=== PATIENT | male | born 1955 | race Caucasian/White ===

== ENCOUNTER → 2016-10-22 | Outpatient (CLI) | payer OTHER ==
[~2016-10-22] MED LIST: ATOR10TA9 PO; BIMA2.5D EACHEYE; CHOL20002 PO; ENOX120S5 SQ; ENOX80SY4 SQ; ENOX80SY5 SQ; FENTANYL PF 100 MCG/2ML ONE; HYDR-3138 PO; LACT1CAP33 PO; LACT1CAP35 PO; MAGN400T26 PO; MELA1TAB7 PO; METO25TA35 PO; METR500T4 PO; MIDAZOLAM 1 MG/ML, 5ML ONE; OMEG1CAP34 PO; OXYC-302 PO; TRAM50TA2 PO; VITA1TAB3 PO; WARF10TA6 PO-COUM; WARF5TAB7 PO; ZOLP10TA PO
== END | disposition home or self-care (01) ==
LOC: RAD 08:36
PROVIDERS: ATTEND Orthopaedic Surgery
DX: M75.122 Complete rotator cuff tear or rupture of left shoulder, not specified as traumatic (principal); M13.812 Other specified arthritis, left shoulder; M25.812 Other specified joint disorders, left shoulder
CPT/HCPCS: 73221; J2250; J3010; 99156; 99157

== ENCOUNTER → 2017-05-21 | Outpatient (CLI) | payer OTHER ==
[~2017-05-21] MED LIST changes: +ACIDOPHILUS PROB1 MG PO; -FENTANYL PF 100 MCG/2ML ONE; -HYDR-3138 PO; +HYDR-3237 PO; -LACT1CAP33 PO; -METR500T4 PO; +METR500T8 PO; -MIDAZOLAM 1 MG/ML, 5ML ONE
== END ==
LOC: CFH 14:56
PROVIDERS: ATTEND Nurse Practitioner Family
DX: Z02.9 Encounter for administrative examinations, unspecified (principal)

== ENCOUNTER 2017-12-22 10:16 | Day surgery (SDC) | payer OTHER ==
[~2017-12-22] VITALS: Ht 167.6 cm; Wt 78.9 kg
[~2017-12-22 10:16] MED LIST changes: +WARF-36 PO; +WARF10TA43 PO-COUM; -WARF10TA6 PO-COUM; -WARF5TAB7 PO
[2017-12-22] MEDS ORDERED: LACTATED RINGERS 1,000 ML IV SCH (10:40)
[2017-12-22] MEDS ORDERED: GABA300C10 PO (11:07)
[2017-12-22] MEDS ORDERED: ENOX150S5 SQ (11:07)
[2017-12-22] MEDS ORDERED: WARF-36 PO (11:07)
[2017-12-22] MEDS ORDERED: METO25TA35 PO (11:07)
[2017-12-22 11:24] VITALS: BP 108/80
[2017-12-22] MEDS ORDERED: PROPOFOL 50 ML ONE (11:41)
[2017-12-22] MEDS ORDERED: MIDAZOLAM 1 MG/ML, 2ML ONE (11:41)
[2017-12-22 12:15] LABS: INTERNATIONAL NORMALIZED RATIO 1.14 (0.93-1.1); PROTHROMBIN TIME 11.7 Seconds (9.6-11.5)
[2017-12-22] MEDS ORDERED: PROMETHAZINE 25 MG/ML, 1ML IV PRN (12:30)
[2017-12-22] MEDS ORDERED: HYDROcodone/APAP 7.5-325MG/15ML UDC PO PRN (12:30)
[2017-12-22] MEDS ORDERED: hydrALAzine 20 MG/ML, 1ML IV PRN (12:30)
[2017-12-22] MEDS ORDERED: ONDANSETRON ODT 8 MG PO PRN (12:30)
[2017-12-22] MEDS ORDERED: ACETAMINOPHEN 325 MG TABLET PO PRN (12:30)
[2017-12-22] MEDS ORDERED: ALBUTEROL SULFATE 2.5 MG/3 ML NPPB PRN (12:30)
[2017-12-22] MEDS ORDERED: MIDAZOLAM 1 MG/ML, 2ML IV PRN (12:30)
[2017-12-22] MEDS ORDERED: LABETALOL 5MG/ML, 20ML IV PRN (12:30)
[2017-12-22] MEDS ORDERED: EPHEDRINE 50 MG/ML, 1ML IVPush PRN (12:30)
[2017-12-22] MEDS ORDERED: FENTANYL PF 100 MCG/2ML IV PRN (12:30)
[2017-12-22] MEDS ORDERED: ONDANSETRON ODT 8 MG ONE (12:43)
== END 2017-12-22 14:50 ==
LOC: OUT 10:16
PROVIDERS: ATTEND Internal Medicine Geriatric Medicine
DX: K31.89 Other diseases of stomach and duodenum (principal); R79.89 Other specified abnormal findings of blood chemistry
CPT/HCPCS: 36415; 43239; 43242; 85610; 88305; 88307; 88313; 93005; J2250; J2704; J7120; Q0162

== ENCOUNTER 2018-02-21 11:04 | Emergency (ER) | payer OTHER ==
[~2018-02-21] VITALS: Ht 167.6 cm; Wt 80.0 kg
[~2018-02-21 11:04] MED LIST changes: +ENOX150S5 SQ; +GABA300C10 PO
[2018-02-21] MEDS ORDERED: HYDROcodone/APAP 5/325 TABLET PO ONE (12:00)
[2018-02-21 12:18] LABS: BASOPHILS # (AUTO) 0.05 x10^3/uL (0-0.1); BASOPHILS % (AUTO) 1 % (0-1); EOSINOPHILS # (AUTO) 0.16 x10^3/uL (0-0.4); EOSINOPHILS % (AUTO) 2 % (1-7); LYMPHOCYTES # (AUTO) 0.81 x10^3/uL (1-3.4); LYMPHOCYTES % (AUTO) 11 % (22-44); MD NO; MEAN CORPUSCULAR HEMOGLOBIN 32.3 pg (27.5-34.5); MEAN CORPUSCULAR HGB CONC 33.7 g/dL (33.2-36.2); MEAN CORPUSCULAR VOLUME 95.8 fL (81-97); MEAN PLATELET VOLUME 10.7 fL (7.4-10.4); MONOCYTES # (AUTO) 0.87 x10^3/uL (0.2-0.8); MONOCYTES % (AUTO) 12 % (2-9); NEUTROPHILS # (AUTO) 5.42 x10^3/uL (1.8-6.8); NEUTROPHILS % (AUTO) 74 % (42-75); PLATELET COUNT 180 x10^3/uL (130-400); RED BLOOD COUNT 3.49 x10^6/uL (4.38-5.82); RED CELL DISTRIBUTION WIDTH 15.7 % (9.4-14.8)
[2018-02-21 12:33] LABS: INTERNATIONAL NORMALIZED RATIO 5.69 (0.93-1.1); PROTHROMBIN TIME 56.6 Seconds (9.6-11.5)
[2018-02-21 12:38] VITALS: BP 108/63
[2018-02-21] MEDS ORDERED: HYDROcodone/APAP 5/325 TABLET ONE (12:40)
== END 2018-02-21 14:07 | disposition home or self-care (01) ==
LOC: ED 13:02
DX: S70.02XA Contusion of left hip, initial encounter (principal); I48.91 Unspecified atrial fibrillation; W19.XXXA Unspecified fall, initial encounter; Y93.89 Activity, other specified; Y99.8 Other external cause status; Y92.009 Unspecified place in unspecified non-institutional (private) residence as the place of occurrence of the external cause
CPT/HCPCS: 36415; 72192; 85025; 85610; 99285

== ENCOUNTER → 2018-03-11 | Outpatient (CLI) | payer OTHER ==
[~2018-03-11] MED LIST changes: -CHOL20002 PO; +CHOL200052 PO
== END | disposition home or self-care (01) ==
LOC: RAD 16:32
PROVIDERS: ATTEND Nurse Practitioner Family
DX: L03.116 Cellulitis of left lower limb (principal); M79.89 Other specified soft tissue disorders; M79.605 Pain in left leg; R60.0 Localized edema

== ENCOUNTER 2018-08-02 06:45 | Outpatient (CLI) | payer MEDICARE ==
[~2018-08-02 06:45] MED LIST changes: +METR-90 PO; -METR500T8 PO
[2018-08-02] MEDS ORDERED: REGADENOSON 0.4 MG/5 ML SYRINGE ONE (07:36)
== END 2018-08-02 23:59 | disposition home or self-care (01) ==
LOC: CFH 06:45
PROVIDERS: ATTEND Internal Medicine Cardiovascular Disease
DX: I35.1 Nonrheumatic aortic (valve) insufficiency (principal); I35.8 Other nonrheumatic aortic valve disorders; I45.2 Bifascicular block; I48.2 Chronic atrial fibrillation; I21.9 Acute myocardial infarction, unspecified; Z95.4 Presence of other heart-valve replacement
CPT/HCPCS: 78452; 93017; 93306; A9502; J2785

== ENCOUNTER → 2018-10-20 | Outpatient (CLI) | payer MEDICARE, OTHER | END | disposition home or self-care (01) | LOC: RAD 12:02 | PROVIDERS: ATTEND Nurse Practitioner Family | DX: R05 Cough (principal); R91.8 Other nonspecific abnormal finding of lung field; R09.89 Other specified symptoms and signs involving the circulatory and respiratory systems | CPT/HCPCS: 71046 ==

== ENCOUNTER → 2018-12-08 | Outpatient (CLI) | payer MEDICARE, OTHER | END | disposition home or self-care (01) | LOC: CFH 13:58 | PROVIDERS: ATTEND Nurse Practitioner Family | DX: J44.9 Chronic obstructive pulmonary disease, unspecified (principal); Z87.01 Personal history of pneumonia (recurrent) | CPT/HCPCS: 71046 ==

== ENCOUNTER 2020-01-31 19:15 | Observation (INO) | payer BC, MEDICARE ==
[~2020-01-31] VITALS: Ht 167.6 cm; Wt 91.0 kg
--- NOTE | 2020-01-31 19:35 | NUR ---
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
[2020-01-31 19:52] LABS: BASOPHILS # (AUTO) 0.06 x10^3/uL (0-0.1); BASOPHILS % (AUTO) 1 % (0-1); EOSINOPHILS # (AUTO) 0.05 x10^3/uL (0-0.4); EOSINOPHILS % (AUTO) 1 % (1-7); LYMPHOCYTES # (AUTO) 1.04 x10^3/uL (1-3.4); LYMPHOCYTES % (AUTO) 13 % (22-44); MD NO; MEAN CORPUSCULAR HEMOGLOBIN 32.5 pg (27.5-34.5); MEAN CORPUSCULAR HGB CONC 33.4 g/dL (33.2-36.2); MEAN CORPUSCULAR VOLUME 97.3 fL (81-97); MEAN PLATELET VOLUME 10.6 fL (7.4-10.4); MONOCYTES # (AUTO) 0.97 x10^3/uL (0.2-0.8); MONOCYTES % (AUTO) 12 % (2-9); NEUTROPHILS # (AUTO) 6.19 x10^3/uL (1.8-6.8); NEUTROPHILS % (AUTO) 74 % (42-75); PLATELET COUNT 148 x10^3/uL (130-400); RED BLOOD COUNT 4.84 x10^6/uL (4.38-5.82); RED CELL DISTRIBUTION WIDTH 14.2 % (9.4-14.8)
--- NOTE | 2020-01-31 19:53 | NUR ---
PT. TO ED TONIGHT WITH C/O FEELINGS OF GENERALIZED WEAKNESS AND BLURRED VISION RESULTING IN A FALL TONIGHT AT 1700. PT. DENIES ANY INJURY WITH FALL, DENIES HITTING HEAD. PT. A&O X 4. ABLE TO STAND FROM W/C AND GET TO GURNEY WITH SHUFFLING GAIT. PT. MANN X 4 WITH GENERALIZD WEAKNESS NOTED. NO FACIAL DROOP NOTED. PT. DOES REPORT HX OF STROKE 4 YEARS AGO. PT. ON [place] PARISH. IMMEDIALY UPON ENTERING ROOM IV WAS STARTED, BLOOD DRAWN, AND ALL MONITORS PLACED. PT. WAS TAKEN TO CT WITH THIS RN AND MONITORS IN PLACE. DR. RAMIREZ WAS IN FOR INITAL EVAL PRIOR TO CT. FAMILY AT FOR SUPPORT.
[2020-01-31] MEDS ORDERED: SODIUM CHLORIDE FLUSH 10ML SYR IVF ONE (20:00)
[2020-01-31] MEDS ORDERED: ONDANSETRON 2MG/ML, 2ML IVPush ONE (20:00)
[2020-01-31] MEDS ORDERED: ONDANSETRON 2MG/ML, 2ML ONE (20:01)
[2020-01-31 20:04] LABS: ALANINE AMINOTRANSFERASE 35 U/L (12-78); ALBUMIN 3.6 g/dL (3.4-5.0); ANION GAP 8 mmol/L (5-15); CALCIUM 8.6 mg/dL (8.5-10.1); CHLORIDE 108 mmol/L (98-107); INTERNATIONAL NORMALIZED RATIO 3.66 (0.93-1.1); PROTHROMBIN TIME 39.3 Seconds (9.6-11.5)
[2020-01-31 20:08] LABS: ALKALINE PHOSPHATASE 140 U/L (45-117); BILIRUBIN,TOTAL 3.3 mg/dL (0.2-1.0); TOTAL PROTEIN 7.3 g/dL (6.4-8.2); TROPONIN I < 0.015 ng/mL (0.000-0.045)
--- NOTE | 2020-01-31 20:12 | NUR ---
PT. WAS C/O NAUSEA, NEW ORDERS RECEIVED. IMMEDIALY PRIOR TO MEDICATING PT. HAD 2 EPISODES OF EMESIS; VERY LARGE AMOUNT. PT. C/O DIZZINESS AND SANCHEZ 09/12.
[2020-01-31] MEDS ORDERED: METOCLOPRAMIDE 5 MG/ML, 2ML ONE (20:37)
[2020-01-31] MEDS ORDERED: METOCLOPRAMIDE 5 MG/ML, 2ML IVPush ONE (21:00)
[2020-01-31] MEDS ORDERED: SODIUM CHLORIDE FLUSH 10ML SYR IVF PRN (21:00)
--- NOTE | 2020-01-31 21:01 | NUR ---
REPORT CALLED TO LUIS A RUELAS. FLOOR READY FOR PT. TRANSPORT. THIS RN WAS IN ROOM FOR EVAL BY DR. CUEVAS DURING TELE NEURO EVAL. PLAN FOR MRI TOMORROW. PT. AGREES WITH POC.
[2020-01-31 21:18] VITALS: BP 112/77
[2020-01-31] MEDS ORDERED: ACETAMINOPHEN 325 MG TABLET PO PRN (23:30)
[2020-01-31] MEDS ORDERED: ONDANSETRON 4 MG TABLET PO PRN (23:30)
[2020-01-31] MEDS ORDERED: BISACODYL 10 MG SUPP PR PRN (23:30)
[2020-01-31] MEDS ORDERED: DOCUSATE 100 MG CAPSULE PO PRN (23:30)
[2020-01-31] MEDS ORDERED: POLYETHYLENE GLYCOL 17 GM PACKET PO PRN (23:30)
[2020-02-01] VITALS (13 sets, daily range): BP systolic 93–110; BP diastolic 58–75
[2020-02-01 05:07] LABS: BASOPHILS # (AUTO) 0.03 x10^3/uL (0-0.1); BASOPHILS % (AUTO) 1 % (0-1); EOSINOPHILS # (AUTO) 0.02 x10^3/uL (0-0.4); EOSINOPHILS % (AUTO) 0 % (1-7); LYMPHOCYTES # (AUTO) 1.14 x10^3/uL (1-3.4); LYMPHOCYTES % (AUTO) 16 % (22-44); MD NO; MEAN CORPUSCULAR HEMOGLOBIN 32.3 pg (27.5-34.5); MEAN CORPUSCULAR HGB CONC 33.4 g/dL (33.2-36.2); MEAN CORPUSCULAR VOLUME 96.7 fL (81-97); MEAN PLATELET VOLUME 10.8 fL (7.4-10.4); MONOCYTES # (AUTO) 0.92 x10^3/uL (0.2-0.8); MONOCYTES % (AUTO) 13 % (2-9); NEUTROPHILS # (AUTO) 5.09 x10^3/uL (1.8-6.8); NEUTROPHILS % (AUTO) 71 % (42-75); PLATELET COUNT 138 x10^3/uL (130-400); RED BLOOD COUNT 4.35 x10^6/uL (4.38-5.82); RED CELL DISTRIBUTION WIDTH 14.2 % (9.4-14.8)
[2020-02-01 05:18] LABS: ALANINE AMINOTRANSFERASE 26 U/L (12-78); ANION GAP 6 mmol/L (5-15); CALCIUM 8.2 mg/dL (8.5-10.1); CHLORIDE 111 mmol/L (98-107)
[2020-02-01 05:21] LABS: ALKALINE PHOSPHATASE 110 U/L (45-117); BILIRUBIN,TOTAL 2.9 mg/dL (0.2-1.0); CHOL/HDL RATIO 2.9; CHOLESTEROL, TOTAL 127 mg/dL (140-239); CREATININE 0.93 mg/dL (0.7-1.3); HDL CHOL % 35 % (26-37); HDL CHOLESTEROL (DIRECT) 44 mg/dL (40-60); LDL CHOLESTEROL,CALCULATED 69 mg/dL (54-169); LDL/HDL RATIO 1.6 (0.5-3.0); TOTAL PROTEIN 6.2 g/dL (6.4-8.2); TRIGLYCERIDES 68 mg/dL (50-200); VLDL CHOLESTEROL 14 mg/dL (0-25)
[2020-02-01] MEDS ORDERED: ASPIRIN 81 MG TABLET CHEW PO/NG SCH (09:00)
[2020-02-01] MEDS ORDERED: WARFARIN MECH. VALVE PROTOCOL 2.5 to 3.5 XX PRN (12:00)
[2020-02-01] MEDS ORDERED: WARFARIN 2 MG TABLET PO-COUM ONE (18:00)
[2020-02-01] MEDS ORDERED: TRAZODONE 50MG TABLET PO PRN (20:30)
[2020-02-01] MEDS ORDERED: ATORVASTATIN 80 MG TABLET PO SCH (21:00)
[2020-02-02 01:00] VITALS: BP 100/61
[2020-02-02 01:02] VITALS: BP 99/59
[2020-02-02 01:05] VITALS: BP 98/60
[2020-02-02 05:24] LABS: BASOPHILS # (AUTO) 0.02 x10^3/uL (0-0.1); BASOPHILS % (AUTO) 0 % (0-1); EOSINOPHILS % (AUTO) 1 % (1-7); LYMPHOCYTES # (AUTO) 1.93 x10^3/uL (1-3.4); LYMPHOCYTES % (AUTO) 25 % (22-44); MD NO; MEAN CORPUSCULAR HEMOGLOBIN 32.2 pg (27.5-34.5); MEAN CORPUSCULAR HGB CONC 33.1 g/dL (33.2-36.2); MEAN CORPUSCULAR VOLUME 97.4 fL (81-97); MONOCYTES % (AUTO) 12 % (2-9); NEUTROPHILS # (AUTO) 4.78 x10^3/uL (1.8-6.8); NEUTROPHILS % (AUTO) 62 % (42-75); PLATELET COUNT 147 x10^3/uL (130-400); RED BLOOD COUNT 4.89 x10^6/uL (4.38-5.82); RED CELL DISTRIBUTION WIDTH 14.2 % (9.4-14.8)
[2020-02-02 05:29] LABS: ALANINE AMINOTRANSFERASE 25 U/L (12-78); ALBUMIN 3.8 g/dL (3.4-5.0); ANION GAP 6 mmol/L (5-15); CALCIUM 9.2 mg/dL (8.5-10.1); CHLORIDE 110 mmol/L (98-107); CREATININE 1.06 mg/dL (0.7-1.3)
[2020-02-02 05:31] LABS: ALKALINE PHOSPHATASE 130 U/L (45-117); BILIRUBIN,TOTAL 3.9 mg/dL (0.2-1.0); INTERNATIONAL NORMALIZED RATIO 2.07 (0.93-1.1); PROTHROMBIN TIME 22.1 Seconds (9.6-11.5); TOTAL PROTEIN 6.6 g/dL (6.4-8.2)
[2020-02-02 07:20] VITALS: BP_SYST 106; BP_SYST 116; BP_SYST 117; BP_DIAS 66; BP_DIAS 76; BP_DIAS 78
[2020-02-02] MEDS ORDERED: WARFARIN 3 MG TABLET PO-COUM ONE (18:00)
== END 2020-02-02 15:24 | disposition home or self-care (01) ==
LOC: ED 20:09 → EDIP 21:19 → INTOOBSV 21:19 → UNDOADMIN 21:19 → 4WST 21:19
PROVIDERS: ADMIT Family Medicine; ATTEND Family Medicine
DX: R42 Dizziness and giddiness (principal); I95.1 Orthostatic hypotension; I48.20 Chronic atrial fibrillation, unspecified; D68.69 Other thrombophilia; G45.9 Transient cerebral ischemic attack, unspecified; I34.1 Nonrheumatic mitral (valve) prolapse; E78.5 Hyperlipidemia, unspecified; H50.9 Unspecified strabismus; R29.700 NIHSS score 0; Z86.73 Personal history of transient ischemic attack (TIA), and cerebral infarction without residual deficits; Z79.01 Long term (current) use of anticoagulants; Z95.2 Presence of prosthetic heart valve; Z79.899 Other long term (current) drug therapy
CPT/HCPCS: 36415; 70450; 70551; 76705; 80047; 80053; 80061; 82607; 83735; 84484; 85025; 85610; 85730; 93005; 93306; 93880; 96374; 96375; 97162; 97165; 99285; G0378; J2405; J2765

== ENCOUNTER → 2020-05-01 | Outpatient (CLI) | payer MEDICARE | END | disposition home or self-care (01) | LOC: CFH 14:09 | PROVIDERS: ATTEND Internal Medicine Geriatric Medicine | DX: R94.5 Abnormal results of liver function studies (principal); Z90.49 Acquired absence of other specified parts of digestive tract | CPT/HCPCS: 76700 ==

== ENCOUNTER 2020-11-17 21:01 | Emergency (ER) | payer MEDICARE ==
[~2020-11-17] VITALS: Ht 172.7 cm; Wt 80.0 kg
[~2020-11-17 21:01] MED LIST changes: -OXYC-302 PO; +OXYC1TAB14 PO
[2020-11-17 21:04] VITALS: BP 128/82
[2020-11-17 23:13] LABS: BASOPHILS % (AUTO) 1 % (0-1); EOSINOPHILS % (AUTO) 3 % (1-7); LYMPHOCYTES % (AUTO) 18 % (22-44); MEAN CORPUSCULAR HEMOGLOBIN 31.4 pg (27.5-34.5); MEAN CORPUSCULAR HGB CONC 33.9 g/dL (33.2-36.2); MEAN PLATELET VOLUME 9.7 fL (7.4-10.4); MONOCYTES % (AUTO) 18 % (2-9); NEUTROPHILS % (AUTO) 61 % (42-75); PLATELET COUNT 170 x10^3/uL (130-400); RED BLOOD COUNT 4.93 x10^6/uL (4.38-5.82); RED CELL DISTRIBUTION WIDTH 14.6 % (9.4-14.8)
[2020-11-17 23:14] LABS: MD NO
[2020-11-17 23:20] LABS: INTERNATIONAL NORMALIZED RATIO 3.33 (0.93-1.1); PROTHROMBIN TIME 34.8 Seconds (9.6-11.5)
[2020-11-17 23:21] LABS: ALBUMIN 3.4 g/dL (3.4-5.0); ANION GAP 3 mmol/L (5-15); CHLORIDE 109 mmol/L (98-107)
[2020-11-17] MEDS ORDERED: CEPHALEXIN 500 MG CAPSULE ONE (23:45)
[2020-11-18] MEDS ORDERED: CEPHALEXIN 500 MG CAPSULE PO ONE
== END 2020-11-18 00:06 | disposition home or self-care (01) ==
LOC: ED 22:35
DX: L03.115 Cellulitis of right lower limb (principal); I50.9 Heart failure, unspecified; I48.91 Unspecified atrial fibrillation; Z90.49 Acquired absence of other specified parts of digestive tract
CPT/HCPCS: 36415; 80048; 82040; 85025; 85610; 85730; 99284